=== PATIENT | male | born 1970 | race Asian ===

== ENCOUNTER 2017-07-18 10:38 | Inpatient (IN) | payer OTHER ==
--- NOTE | 2017-07-18 10:48 | CPEKG ---
Heart Rate: 153 RR Interval: 392 P-R Interval: 64 QRSD Interval: 68 QT Interval: 280 QTC Interval: 447 P Wilcox: 0 QRS Wilcox: 91 T Wave Wilcox: 35 EKG Severity - OTHERWISE NORMAL ECG - EKG Impression: SINUS TACHYCARDIA EKG Impression: BORDERLINE RIGHT AXIS DEVIATION Electronically Signed By: Eugenio Butler 18-Jul-2017 15:56:32
--- NOTE | 2017-07-18 10:56 | EDPHY ---
H & P Time Seen by Provider: 07/18/17 10:39 HPI/ROS: Chief complaint. Rapid heart rate HPI. 47-year-old male in a poly speaking only presents by EMS with rapid heart rate. It began about 2 hr ago. He was just finishing exercise and is heart rate seem to go fast. He had some shortness of breath and chest tightness. He was seen at [facility] and EMS was called and patient transported here emergently. Apparently has had similar symptoms previously with the last episode occurring about 2 weeks ago. Otherwise not sick and no fever. Patient is an insulin-dependent diabetic and tells me it is time for his insulin shot. ROS Constitutional. no fever/chills, no weakness Eyes. no problems with vision ENT. no sore throat, no nasal drainage Cardiovascular. Chest tightness and rapid heart rate Respiratory. Shortness of breath Abdominal. no abdominal pain, no nausea/vomiting, no diarrhea . no problems urinating MS. no calf pain/swelling, no neck/back pain, no joint pain Skin. no rash Lymph. no swollen glands Neuro. no headache, no dizziness, no difficulty walking or with speech Past Medical/Surgical History: Insulin-dependent diabetes, dyslipidemia Social History: Single, nonsmoker, no alcohol Physical Exam: General Appearance: Alert well-developed male moderate distress. Vital signs show heart rate about 154 and blood pressure approximately 90/60 Eyes: Pupils equal and round no pallor or injection. ENT, Mouth: Mucous membranes are moist. Respiratory: There are no retractions, lungs are clear to auscultation. Cardiovascular: Regular rate and rhythm with tachycardia Gastrointestinal: Abdomen is soft and nontender, no masses, bowel sounds normal. Neurological: Awake and alert, sensory and motor exams grossly normal. Skin: Warm and dry, no rashes. Musculoskeletal: Neck is supple nontender. Extremities symmetrical, full range of motion. Psychiatric: Patient is oriented X 3, there is no agitation. Constitutional: Initial Vital Signs Temperature (C) 36.8 C 07/18/17 10:52 Heart Rate 154 H 07/18/17 10:52 Respiratory Rate 18 07/18/17 10:52 Blood Pressure 116/70 07/18/17 10:52 O2 Sat (%) 99 07/18/17 10:52 O2 Delivery Mode Room Air Allergies/Adverse Reactions: No Known Allergies Allergy (Unverified 07/18/17 11:10) Home Medications: Medication Instructions Recorded Insulin 70/30 Human 07/18/17 Medical Decision Making - Diagnostics EKG Interpretation: EKG shows what appears to be supraventricular tachycardia. Normal interval and axis. No obvious ST elevation or depression. The rate is 153 Repeat EKG interpreted by me shows normal sinus rhythm normal interval and axis. QRS is normal though there is peaked T-waves. No arrhythmia. The rate is 90 Imaging Results: Imaging Impressions Chest X-Ray 07/18/17 10:53 Impression: Negative portable chest. Procedures: IV normal saline monitor Adenosine IV bolus. Heart rate comes down to about 90. Blood pressure now 116/70 ED Course/Re-evaluation: Patient is found to have potassium of 6.7. I repeated at 6.4. Patient is given calcium, insulin/D50, sodium bicarbonate intravenously. Kayexalate orally. I consulted and discussed the case with Dr. Roland, hospitalist, who agrees to the admission The family and I discussed findings, treatment plan including importance of admission and further evaluation. 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 Hyperkalemia with renal insufficiency treated with medication. No evidence for acute coronary syndrome Critical Care Time: Critical care time exclusive procedures 45 min - Data Points Laboratory Results: Laboratory Results 07/18/17 10:30 07/18/17 10:30 07/18/17 07/18/17 07/18/17 11:24 10:30 10:30 WBC 8.07 10^3/uL 10^3/uL (3.80-9.50) RBC 4.43 10^6/uL 10^6/uL (4.40-6.38) Hgb 14.1 g/dL g/dL (13.7-17.5) POC Hgb 14.3 gm/dL gm/dL (13.7-17.5) Hct 40.6 % % (40.0-51.0) POC Hct 42 % % (40-51) MCV 91.6 fL fL (81.5-99.8) MCH 31.8 pg pg (27.9-34.1) MCHC 34.7 g/dL g/dL (32.4-36.7) RDW 12.5 % % (11.5-15.2) Plt Count 220 10^3/uL 10^3/uL (150-400) MPV 10.3 fL fL (8.7-11.7) Neut % (Auto) 69.9 % % (39.3-74.2) Lymph % (Auto) 19.1 % % (15.0-45.0) Cook % (Auto) 5.7 % % (4.5-13.0) Eos % (Auto) 4.0 % % (0.6-7.6) Baso % (Auto) 1.1 % % (0.3-1.7) Nucleat RBC Rel Count 0.0 % % (0.0-0.2) Absolute Neuts (auto) 5.64 10^3/uL 10^3/uL (1.70-6.50) Absolute Lymphs (auto) 1.54 10^3/uL 10^3/uL (1.00-3.00) Absolute Monos (auto) 0.46 10^3/uL 10^3/uL (0.30-0.80) Absolute Eos (auto) 0.32 10^3/uL 10^3/uL (0.03-0.40) Absolute Basos (auto) 0.09 10^3/uL 10^3/uL (0.02-0.10) Absolute Nucleated RBC 0.00 10^3/uL 10^3/uL (0-0.01) Immature Gran % 0.2 % % (0.0-1.1) Immature Gran # 0.02 10^3/uL 10^3/uL (0.00-0.10) POC Sodium 136 mEq/L mEq/L (135-145) Sodium 136 mEq/L mEq/L (135-145) POC Potassium 6.4 mEq/L H* mEq/L (3.3-5.0) Potassium 6.7 mEq/L H* mEq/L (3.3-5.0) POC Chloride 102 mEq/L mEq/L (97-110) Chloride 102 mEq/L mEq/L (97-110) Carbon Dioxide 22 mEq/l mEq/l (22-31) Anion Gap 12 mEq/L mEq/L (8-16) POC BUN 31 mg/dL H mg/dL (7-23) BUN 30 mg/dL H mg/dL (7-23) Creatinine 1.5 mg/dL H mg/dL (0.7-1.3) POC Creatinine 1.6 mg/dL H mg/dL (0.7-1.3) Estimated GFR 50 Glucose 340 mg/dL H mg/dL (70-100) POC Glucose 353 mg/dL H mg/dL (70-100) Calcium 8.8 mg/dL mg/dL (8.5-10.4) Troponin I < 0.012 ng/mL ng/mL (0.000-0.034) Medications Given: Discontinued Medications Adenosine (Adenosine) 6 mg IVP EDNOW ONE Stop: 07/18/17 11:11 Last Admin: 07/18/17 11:11 Dose: 6 mg Point of Care Test Results: 07/18/17 11:24 POC Sodium 136 POC Potassium 6.4 H* POC Chloride 102 POC BUN 31 H POC Creatinine 1.6 H POC Glucose 353 H Departure - Departure Disposition: [facility] Inpatient Acute Clinical Impression: Supraventricular tachycardia, Hyperkalemia Condition: Fair Referrals: Patient,NotPresent [Unknown] - As per Instructions
[2017-07-18 10:58] LABS: PLATELET COUNT 220 10^3/uL (150-400)
[2017-07-18] MEDS ORDERED: ADENOSINE 6 MG/2 ML VIAL IVP ONE (11:10)
[2017-07-18] MEDS ORDERED: SODIUM POLY SULF 15 GM/60 ML BOTTLE PO ONE (11:46)
[2017-07-18] MEDS ORDERED: CALCIUM GLUC 10% 1 GM/10 ML VIAL IVP ONE (11:46)
[2017-07-18] MEDS ORDERED: D50W 25 GM/50 ML SYR IVP ONE (11:46)
[2017-07-18] MEDS ORDERED: INSULIN REGULAR HUMAN 100 UNIT/ML UNIT IVP ONE (11:46)
[2017-07-18] MEDS ORDERED: SODIUM BICARBONATE 150 MEQ in D5W 1,000 ML IV ONE (11:46)
[2017-07-18] MEDS ORDERED: ACETAMINOPHEN 325 MG TAB PO PRN (12:00)
[2017-07-18] MEDS ORDERED: SODIUM POLY SULF 15 GM/60 ML BOTTLE ONE (12:10)
[2017-07-18] MEDS ORDERED: D50W 25 GM/50 ML SYR IVP PRN (13:11)
--- NOTE | 2017-07-18 13:43 | PDGENHP ---
History and Physical - Chief Complaint Acute shortness of breath - History of Present Illness Primary care provider: [facility] HPI: 47-year-old male presenting with acute shortness of breath characterized as chest heaviness with associated sensation of rapid heart rate, blurred vision , chest pain with onset of symptoms on the day of presentation following light exercise and shower. Duration of symptoms was approximately 2 hr and they were alleviated by adenosine received in the emergency department. They are very similar in character to a constellation of symptoms occurring 5 months ago which were only of 15 min duration and were alleviated with juice. The patient reports that he has otherwise been feeling well, but has notably had low oral intake of liquids on the day of presentation and on the day prior. He does not report feeling overtly ill, and denies any fevers chills cough diarrhea nausea or vomiting. He reports that on the morning of presentation he did take his home medications prior to engaging in a brisk walk. He otherwise denies any polyuria, oliguria or flank pain. History Information - Allergies/Home Medication List Allergies/Adverse Reactions: No Known Allergies Allergy (Unverified 07/18/17 11:10) Home Medications: Aspirin EC [Aspirin EC 81 mg (*)] 81 mg PO DAILY 07/18/17 [Last Taken 07/17/17] Atorvastatin Calcium [Lipitor 20 mg (*)] 20 mg PO DAILY 07/18/17 [Last Taken ] Insulin Detemir [Levemir Flextouch] 8 unit SQ DAILY 07/18/17 [Last Taken ] Insulin Detemir [Levemir Flextouch] 10 unit SQ HS 07/18/17 [Last Taken 07/17/17] Linagliptin [Tradjenta] 5 mg PO DAILY 07/18/17 [Last Taken 07/18/17] Lisinopril [Zestril 5 mg (*)] 5 mg PO DAILY 07/18/17 [Last Taken 07/17/17] Pioglitazone HCl [Actos 15mg (*)] 15 mg PO DAILY 07/18/17 [Last Taken 07/17/17] diphenhydrAMINE [Benadryl 25 MG (*)] 50 mg PO Q4-6PRN PRN 07/18/17 [Last Taken Unknown] metFORMIN HCL [Glucophage 1000 mg] 1,000 mg PO BIDMEAL 07/18/17 [Last Taken 18:00] I have personally reviewed and updated: family history, medical history, social history, surgical history - Past Medical History diabetes type 1 (Diagnosis 14-15 years ago, no hospitalizations, resultant retinopathy), hypertension, hyperlipidemia Additional medical history: Nephrolithiasis - Surgical History Additional surgical history: Left-sided ureteral surgery for obstructive kidney stone - Family History Additional family history: No family history of sudden cardiac or premature coronary artery disease - Social History Smoking Status: Never smoked Alcohol Use: None Drug Use: None Additional social history: Reports that he exercises 4-5 times weekly, he is originally from [facility] where his and children live, 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 Review of Systems Review of Systems: ROS: 10pt was reviewed & negative except for what was stated in HPI & below EENMT: Reports: blurred vision Cardiac: Reports: chest pain, palpitations Respiratory: Reports: shortness of breath Physical Exam Physical Exam: Temp Pulse Resp BP Pulse Ox 36.8 C 80 12 116/70 99 07/18/17 10:52 07/18/17 13:13 07/18/17 13:13 07/18/17 13:13 07/18/17 13:13 Constitutional: no apparent distress, appears nourished, not in pain Eyes: PERRL, EOMI, scleral injection Ears, Nose, Mouth, Throat: moist mucous membranes, hearing normal, ears appear normal, no oral mucosal ulcers Cardiovascular: regular rate and rhythym, no murmur, rub, or gallop, No edema Respiratory: no respiratory distress, no rales or rhonchi, clear to auscultation Gastrointestinal: normoactive bowel sounds, soft, non-tender abdomen, no palpable masses, No distension Genitourinary: other (Bladder fullness, no CVA tenderness) Skin: warm, No abrasion, No erythema, No rash Neurologic: AAOx3, sensation intact bilaterally, No weakness Psychiatric: interacting appropriately, not anxious, not encephalopathic, thought process linear Lab Data & Imaging Review 07/18/17 10:30 07/18/17 10:30 WBC 8.07 10^3/uL (3.80-9.50) 07/18/17 10:30 RBC 4.43 10^6/uL (4.40-6.38) 07/18/17 10:30 Hgb 14.1 g/dL (13.7-17.5) 07/18/17 10:30 POC Hgb 14.3 gm/dL (13.7-17.5) 07/18/17 11:24 Hct 40.6 % (40.0-51.0) 07/18/17 10:30 POC Hct 42 % (40-51) 07/18/17 11:24 MCV 91.6 fL (81.5-99.8) 07/18/17 10:30 MCH 31.8 pg (27.9-34.1) 07/18/17 10:30 MCHC 34.7 g/dL (32.4-36.7) 07/18/17 10:30 RDW 12.5 % (11.5-15.2) 07/18/17 10:30 Plt Count 220 10^3/uL (150-400) 07/18/17 10:30 MPV 10.3 fL (8.7-11.7) 07/18/17 10:30 Neut % (Auto) 69.9 % (39.3-74.2) 07/18/17 10:30 Lymph % (Auto) 19.1 % (15.0-45.0) 07/18/17 10:30 [place] % (Auto) 5.7 % (4.5-13.0) 07/18/17 10:30 Eos % (Auto) 4.0 % (0.6-7.6) 07/18/17 10:30 Baso % (Auto) 1.1 % (0.3-1.7) 07/18/17 10:30 Nucleat RBC Rel Count 0.0 % (0.0-0.2) 07/18/17 10:30 Absolute Neuts (auto) 5.64 10^3/uL (1.70-6.50) 07/18/17 10:30 Absolute Lymphs (auto) 1.54 10^3/uL (1.00-3.00) 07/18/17 10:30 Absolute Monos (auto) 0.46 10^3/uL (0.30-0.80) 07/18/17 10:30 Absolute Eos (auto) 0.32 10^3/uL (0.03-0.40) 07/18/17 10:30 Absolute Basos (auto) 0.09 10^3/uL (0.02-0.10) 07/18/17 10:30 Absolute Nucleated RBC 0.00 10^3/uL (0-0.01) 07/18/17 10:30 Immature Gran % 0.2 % (0.0-1.1) 07/18/17 10:30 Immature Gran # 0.02 10^3/uL (0.00-0.10) 07/18/17 10:30 POC Sodium 136 mEq/L (135-145) 07/18/17 11:24 Sodium 136 mEq/L (135-145) 07/18/17 10:30 POC Potassium 6.4 mEq/L (3.3-5.0) H* 07/18/17 11:24 Potassium 6.7 mEq/L (3.3-5.0) H* 07/18/17 10:30 POC Chloride 102 mEq/L (97-110) 07/18/17 11:24 Chloride 102 mEq/L (97-110) 07/18/17 10:30 Carbon Dioxide 22 mEq/l (22-31) 07/18/17 10:30 Anion Gap 12 mEq/L (8-16) 07/18/17 10:30 POC BUN 31 mg/dL (7-23) H 07/18/17 11:24 BUN 30 mg/dL (7-23) H 07/18/17 10:30 Creatinine 1.5 mg/dL (0.7-1.3) H 07/18/17 10:30 POC Creatinine 1.6 mg/dL (0.7-1.3) H 07/18/17 11:24 Estimated GFR 50 07/18/17 10:30 Glucose 340 mg/dL (70-100) H 07/18/17 10:30 POC Glucose 353 mg/dL (70-100) H 07/18/17 11:24 Calcium 8.8 mg/dL (8.5-10.4) 07/18/17 10:30 Troponin I < 0.012 ng/mL (0.000-0.034) 07/18/17 10:30 Visualized and Interpreted Chest x-ray results: Yes Chest X-Ray results: no infiltrate Visualized and Interpreted EKG results: Yes EKG Interpretation: Positive for: other (Presenting EKG with supraventricular tachycardia) Assessment & Plan Assessment: 47-year-old male presenting with acute supraventricular tachycardia most likely secondary to acute hyperkalemia secondary to acute kidney injury Plan: 1. Supraventricular tachycardia. Acute, new problem this provider, further workup indicated. I suspect this is the etiology of the patient's chest symptoms, most likely provoked by severe hyperkalemia as well as recent exercise -get echocardiogram -check TSH -check D-dimer -cycle troponin level -monitor on telemetry -patient broke into a normal sinus mechanism with adenosine, he is currently in normal sinus rhythm on telemetry, personally interpreted 2. Hyperkalemia. Acute, severe, most likely secondary to acute kidney injury, likely provoking factor patient's arrhythmia -patient has received calcium gluconate, D50, insulin, bicarbonate, Kayexalate in the emergency department -repeat serum potassium level and monitor q.4 hours -if serum potassium remains greater than 6 on repeat lab draw, will repeat Kayexalate dosing as well as another amp of bicarbonate -monitor closely on telemetry -if potassium level is worsening, will consult with Renal for possible renal replacement therapy 3. Acute kidney injury. New problem this provider, further workup indicated. Unclear whether this is purely hypovolemic in the setting of approximately 48 hr of low oral intake of liquids as well as recent exercise and concomitant use of NED-inhibitor, he is at risk for chronic kidney disease with a history of obstructive nephrolithiasis as well as insulin-dependent diabetes and retinopathy -check renal ultrasound -get urinalysis, fraction excretion of sodium, microalbumin to creatinine ratio -monitor strict I&Os, continue with normal saline 150 an hour and repeat serum creatinine level in a.m. 4. Diabetes mellitus. Hyperglycemia on presentation, most likely secondary to above, no evidence of DKA with normal anion gap -will check hemoglobin A1c -order outside records from [facility] to determine level of screening and maintenance to date -continue home medication of long-acting insulin, utilize short-acting insulin sliding scale -hold metformin, hold actos, hold Tradjenta given kidney injury 5. Hypertension. Chronic, hold NED-inhibitor, monitor blood pressure Diet. Renal Prophylaxis. High risk patient, heparin subcu Code. Full, sister Ashley Fitzpatrick is his MD POA Disposition. Anticipated discharge is 07/19, pending resolution of conditions outlined above. I have discussed patient's presentation with Sola Gonzalez, hospitalist provider , she has signed out the patient to me for evaluation.
[2017-07-18] MEDS ORDERED: diphenhydrAMINE 25 MG CAP PO PRN (13:51)
--- NOTE | 2017-07-18 14:55 | ASMTCASEMG ---
Living Arrangements What is your living Answers: With Spouse arrangement? Who do you live with? Type Of Residence What kind of residence do Answers: House you live in? Discharge Plan Comments Coordination Status Comments Notes: Pt is a 47 y/o man admitted for shortness of breath. Pt will most likely d/c independent when medically stable. No therapies ordered at this time. CM available for changes. Plan: Independent Date Signed: 07/18/2017 02:54 PM Electronically Signed By:SISSY Pierre
--- NOTE | 2017-07-18 15:29 | ECHO ---
[email or web address] [address] Main: [phone] Fax: [email or web address] Echocardiogram Name: ARNOLD ALICEA MR#: [id number] Study Date: 07/18/2017 Study Time: 02:35 PM Date of : 1970 Age: 47 year(s) Height: 165.1 cm (65 in.) Weight: ( ) BSA: Gender: Male Examination: Echo Indication: Supraventricular Tachycardia Image Quality: Contrast: Requested by: Josh Perea BP: 132 mmHg/78 mmHg Heart Rate: Rhythm: Indication: Supraventricular Tachycardia Procedure Staff Sales And Marketing Specialist: Bhargavi Cox SARA Reading Physician: Requesting Provider: Measurements: Chambers Valvular Assessment AV/MV Valvular Assessment TV/PV Normal Normal Normal Name Value Range Name Value Range Name Value Range Ao Maricel (MM): 3.7 cm (2.2 cm-3.7 AV meanP mmHg ( - ) TR Vmax: 2.00 mm/s ( - ) cm) MV E Vmax: 0.44 m/s ( - ) TR PGmax: 16 mmHg ( - ) IVSd (2D): 1.2 cm (0.6 cm-1.1 MV A Vmax: 0.65 m/s ( - ) syst. PAP: 21 mmHg ( - ) cm) MV E/A: 0.68 ( - ) LVDd (2D): 4.4 cm (4.2 cm-5.9 cm) LVDs (2D): 3.2 cm (2.1 cm-4 cm) LVPWd (2D): 0.9 cm (0.6 cm-1 cm) LVEF (MOD4): 73 % (>=55 %) EF Range: 65-70 % Continued Measurements: Chambers Valvular Assessment AV/MV Valvular Assessment TV/PV Name Value Name Value Name Value LADs: 3.6 cm MV E' Septal: 0.05 m/s CVP (est.): 5 mmHg LADs Lon.5 cm MV E/E' Septal: 9.40 LA Area: 21.8 cm2 MV E/E' Lateral: 7.50 Additional Vessels Name Value Ao Ascendin.8 cm Patient: ARNOLD ALICEA Study Date: 07/18/2017 Page 1 of 2 02:35 PM Findings: Left Ventricle: Normal size left ventricle. Mild concentric LV hypertrophy. Normal global systolic LV function. The ejection fraction is estimated to be 65-70 %. No regional wall motion abnormality. Right Ventricle: Normal size right ventricle. Left Atrium: The left atrium is moderately dilated. Atrial septal bowing from left to right. Right Atrium: The right atrium is normal in size. Mitral Valve: The mitral valve is normal in appearance and function. Trivial to mild mitral regurgitation. Aortic Valve: The aortic valve is tri-leaflet. Minimal aortic cusp calcification is noted. Tricuspid Valve: The tricuspid valve is normal in appearance and function. Mild tricuspid regurgitation is present. Pulmonic Valve: The pulmonic valve is normal in appearance and function. Trivial pulmonic valve regurgitation. Aorta: The aorta is normal. Pericardium: No pericardial effusion. (No Signature Object) Patient: ARNOLD ALICEA Study Date: 07/18/2017 Page 2 of 2 02:35 PM [id number]
[2017-07-18] MEDS: NS 1,000 ML IV SCH ×2 (16:07→22:18)
--- NOTE | 2017-07-18 16:09 | CPEKG ---
Heart Rate: 79 RR Interval: 759 P-R Interval: 164 QRSD Interval: 70 QT Interval: 372 QTC Interval: 427 P Aspers: 56 QRS Aspers: 49 T Wave Aspers: 27 EKG Severity - NORMAL ECG - EKG Impression: SINUS RHYTHM Electronically Signed By: Robert Zapata 19-Jul-2017 09:28:18
[2017-07-18] MEDS: INSULIN REGULAR HUMAN 100 UNIT/ML UNIT SC SCH ×2 (18:34→21:57)
[2017-07-18] MEDS: HEPARIN 5,000 UNIT/0.5 ML INJ SC SCH (22:04)
[2017-07-19] MEDS: HEPARIN 5,000 UNIT/0.5 ML INJ SC SCH ×4 (06:25→21:52)
[2017-07-19] MEDS ORDERED: ATORVASTATIN CALCIUM 20 MG TAB PO SCH (09:00)
[2017-07-19] MEDS ORDERED: ENOXAPARIN 40 MG/0.4 ML SYR SC SCH (09:00)
[2017-07-19] MEDS ORDERED: ASPIRIN 81 MG PO SCH (09:00)
[2017-07-19] MEDS ORDERED: ATORVASTATIN CALCIUM 10 MG TAB PO SCH (09:00)
--- NOTE | 2017-07-19 11:17 | CPR ---
[f rep st] NONINVASIVE CARDIAC PROCEDURE REPORT DATE OF PROCEDURE: 07/19/2017 PROCEDURE: Exercise treadmill test. INDICATION: The patient is a 47-year-old male with a history of hypertension, diabetes, and possible hyperlipidemia who presented to the hospital with chest discomfort. He was found to be in SVT which terminated with adenosine. His troponin was minimally elevated. PROCEDURE IN DETAIL: Consent was obtained and the patient was placed on continuous telemetry. He is [place] speaking only and therefore a phone interpreter and translator was used during the procedure. His resting EKG revealed normal sinus rhythm with a heart rate of [address]-T wave changes. The jun horne exercised for 13 minutes without any associated symptoms. At peak exertion, he developed 1.5 m m of upsloping ST depression in inferior and lateral leads. The ST changes resolved quickly in the r ecovery phase. His blood pressure at rest was 146/82 and increased peaking at 200/60 with peak exert ion. His blood pressure returned to baseline 5 minutes into recovery. PLAN: Positive exercise treadmill test. I did recommend the patient proceed with a nuclear stress t est which has been scheduled for later this afternoon. /[id number]/MODL
[2017-07-19] MEDS: INSULIN REGULAR HUMAN 100 UNIT/ML UNIT SC SCH ×4 (11:50→21:48)
[2017-07-19] MEDS: ATORVASTATIN CALCIUM 10 MG TAB PO SCH (12:10)
[2017-07-19] MEDS: ASPIRIN EC 81 MG TAB PO SCH (12:10)
[2017-07-19] MEDS ORDERED: REGADENOSON 0.4 MG/5 ML SYR IVP ONE (13:02)
--- NOTE | 2017-07-19 15:19 | HOSPPROG ---
Hospitalist Progress Note Assessment/Plan: # Acute Chest pain - pt remained symptom free overnight - troponins and EKG's negative patient taken to treadmill this am an had ST segment depression will exerting with some right sided chest pressure during recovery EKG (personally reviewed and interpreted) remains in sinus - Lexiscan ordered - added troponin to am labs - cont telemetry - if larisa positive will need to stay for cards consult and Cath # Supraventricular tachycardia- Acute- patient broke into sinus rhythm after admission Echocardiogram (reviewed) EF 65% without segmental wall motion abnormalities TSH 6.25 - continue telemetry # Hyperkalemia-Acute, severe, most likely secondary to acute kidney injury, likely provoking factor patient's arrhythmia patient received calcium gluconate, D50, insulin, bicarbonate, Kayexalate in the emergency department -recheck serum potassium in am # Acute kidney injury- secondary to hypovolemia creatinine 1.5 -> 1.0 overnight with IVF - recheck creatinine in am # Diabetes mellitus- Hyperglycemia on presentation-no evidence of DKA with normal anion gap hemoglobin A1c 8.6 -continue home medication of long-acting insulin and SSI -hold metformin -hold actos -hold Tradjenta given kidney injury # Hypertension. Chronic, hold NED-inhibitor, monitor blood pressure Diet. Renal Prophylaxis. High risk patient, heparin subcu Code. Full, sister Ashley Fitzpatrick is his MD POA Disposition. Anticipated discharge is 07/19, pending resolution of conditions outlined above. I have discussed the case with Cardiology - will order Lexiscan as pt with changes on tread and significant risk factors for CAD Subjective: did have pain after stress Objective: Vital Signs Temp Pulse Resp BP Pulse Ox 36.4 C 76 15 135/82 H 96 07/19/17 04:32 07/19/17 11:48 07/19/17 11:48 07/19/17 11:48 07/19/17 11:48 Laboratory Results 07/19/17 04:01 07/18/17 07/19/17 07/20/17 05:59 05:59 05:59 Intake Total 3044 Output Total 700 Balance 2344 - Physical Exam Constitutional: appears nourished Eyes: anicteric sclera Ears, Nose, Mouth, Throat: moist mucous membranes Cardiovascular: regular rate and rhythym Respiratory: no respiratory distress Gastrointestinal: normoactive bowel sounds Genitourinary: no bladder fullness Skin: warm Musculoskeletal: No asymmetric calves Neurologic: AAOx3 Psychiatric: interacting appropriately Lymph, Heme, Immunologic: no cervical LAD ICD10 Worksheet Patient Problems: Problems Problem Status Onset Hyperkalemia Acute Supraventricular tachycardia Acute
--- NOTE | 2017-07-19 20:39 | CPR ---
[f rep st] NONINVASIVE CARDIAC PROCEDURE REPORT DATE OF PROCEDURE: 07/18/2017 PROCEDURE PERFORMED: Exercise nuclear stress test. INDICATION FOR PROCEDURE: Chest pain, with evidence of ECG changes on exercise treadmill stress test performed earlier today. PROCEDURE: After informed consents were obtained for exercise treadmill stress test and nuclear imag ing, the patient was started on the standard Garrett protocol. He was able to exercise for a total of 13 minutes and 1 second on the standard Garrett protocol. He had no symptoms. He did have ECG changes , including [address]-segment depression in leads V4 through V6 that resolved within 45 seco nds to 1 minute into the recovery phase. He had no symptoms. There were no arrhythmias detected. P eak blood pressure was 202/80. Pre-exercise blood pressure was 138/70. CONCLUSIONS: 1. Positive exercise treadmill stress test, with [address]-segment depressions in V4 throug h V6. 2. Rapid resolution of ECG changes, suggestive of false positive. 3. No symptoms with 13 minutes of exercise, Doty treadmill score of 3, moderate risk. PLAN: Nuclear images are pending. Further decisions regarding the patient's care will be based off of nuclear imaging results. The patient is stable at the time of discharge and returning to room on -[place] telemetry. /[id number]/MODL
[2017-07-19] MEDS: INSULIN DETEMIR 5 UNIT SQ SCH (21:49)
[2017-07-20] MEDS: NS 1,000 ML IV SCH (00:13)
[2017-07-20] MEDS: HEPARIN 5,000 UNIT/0.5 ML INJ SC SCH (05:56)
[2017-07-20] MEDS: INSULIN REGULAR HUMAN 100 UNIT/ML UNIT SC SCH ×5 (09:29→22:16)
[2017-07-20] MEDS: ATORVASTATIN CALCIUM 10 MG TAB PO SCH (09:30)
[2017-07-20] MEDS: ASPIRIN EC 81 MG TAB PO SCH (09:30)
--- NOTE | 2017-07-20 12:39 | HOSPPROG ---
Hospitalist Progress Note Assessment/Plan: # Acute Chest pain - pt with CP during recovery of treadmill yesterday - troponins peaked post tachycardia at 0.36 patient taken to treadmill this am an had ST segment depression- TELE ( personally reviewed and interpreted) remains in sinus Lexiscan show areas of infarct and periinfarct ischemia oxygen saturations 93% on RA - NPO for cath - cont telemetry # Supraventricular tachycardia- Acute- patient broke into sinus rhythm after admission Echocardiogram (reviewed) EF 65% without segmental wall motion abnormalities - Lexiscan EF 57% TSH 6.25 - continue telemetry # Hyperkalemia-Acute, severe, most likely secondary to acute kidney injury- now resolved patient received calcium gluconate, D50, insulin, bicarbonate, Kayexalate in the emergency department -recheck serum potassium in am # Acute kidney injury- secondary to hypovolemia creatinine 1.5 -> 0.9 with IVF - recheck creatinine in am # Diabetes mellitus- Hyperglycemia on presentation-no evidence of DKA with normal anion gap hemoglobin A1c 8.6 -continue home medication of long-acting HS insulin at 1/2 dose while NPO - cont SSI -hold metformin -hold actos -hold Tradjenta given kidney injury # Hypertension. Chronic, hold NED-inhibitor, monitor blood pressure Diet. Renal Prophylaxis. High risk patient, heparin subcu Code. Full, sister Ashley Fitzpatrick is his MD POA Disposition. > 2MN as requires cardiac cath I have discussed the case with Dr. Brown - for suspected cath this afternoon Subjective: denies pain this am Objective: Vital Signs Temp Pulse Resp BP Pulse Ox 37.0 C 60 16 148/83 H 93 07/20/17 11:36 07/20/17 11:36 07/20/17 11:36 07/20/17 11:36 07/20/17 11:36 Laboratory Results 07/20/17 03:47 07/19/17 07/20/17 07/21/17 05:59 05:59 05:59 Intake Total 3044 200 300 Output Total 700 Balance 2344 200 300 - Physical Exam Constitutional: no apparent distress Eyes: anicteric sclera Ears, Nose, Mouth, Throat: moist mucous membranes Cardiovascular: regular rate and rhythym Respiratory: no respiratory distress, No inspiratory crackles Gastrointestinal: normoactive bowel sounds Genitourinary: no bladder fullness Skin: warm Musculoskeletal: No asymmetric calves Neurologic: AAOx3 Psychiatric: interacting appropriately Lymph, Heme, Immunologic: no cervical LAD ICD10 Worksheet Patient Problems: Problems Problem Status Onset Hyperkalemia Acute Supraventricular tachycardia Acute
--- NOTE | 2017-07-20 13:24 | PDMN ---
Medical Necessity Medical necessity: C/M review: Patient meets INPT criteria under MCG M-89 Chest pain, M-210 Supraventricular arrhythmias: Acute chest pain upon admission and during recovery of stress treadmill 07/19/2017 - patient had ST segment depression during stress treadmill 07/19/2017, troponins 0.012, 0.199, 0.367, 0.304, 07/19/2017 Lexiscan myocardial perfusion showed small infarct in the anterior septal wall toward the apex, moderate infarct in the inferolateral wall with periinfarct ischemia, LVEF 57%, Acute severe supraventricular tachycardia heart rate 154 07/18/2017, patient went into sinus rhythm after admission, TSH 6.26, acute hyperkalemia most likely to acute kidney injury - K 6.7 treated with calcium gluconate, D50, insulin, bicarbonate, kayexalate in the ED, subsequent K levels - 5.0, 3.7, 4.9. 4.6 (now resolved), acute kidney injury secondary to hypovolemia, Cr 1.5, 1.1, 1.0, 1.0, 0.9, requiring Cardiology consult, 07/19/2017 stress treadmill (positive0 and myocardial perfusion scan, possible 07/20/2017 cardiac catheterization, ongoing IV NS 50 ml/ hr. infusion, cardiac monitoring, pulse oximetry, comorbid diabetes. MD anticipates > 2 MN LOS for ongoing med nec for eval and TX of above.
--- NOTE | 2017-07-20 14:43 | ASMTCMCOM ---
CM Note CM Note Notes: Chart reviewed. Questioning infarted area on his stress test. Plan for cath this pm with Dr. Brown. Needs to be determined. CM to follow. Plan: likely home Independently with family. Date Signed: 07/20/2017 02:42 PM Electronically Signed By:Cecilia Bauer RN
--- NOTE | 2017-07-20 21:15 | GCON ---
[f rep st] CONSULTATION FORMAL CARDIOLOGY CONSULTATION. DATE OF CONSULTATION: 07/20/2017 HISTORY OF PRESENT ILLNESS: The patient is a 47-year-old, [place] National, presenting to the [facility] with acute shortness of breath associated with chest heaviness and pressure, as well as sensation of rapid heartbeat, blurred vision, and dizziness. The patient was exercising earlier today and the n took a shower and experience sudden onset of relatively rapid heartbeat. He went to the pharmacy t o rock picker some medications and continued to have clinical symptoms and ultimately presented to the em ergency department for further evaluation at the recommendation of the pharmacist. He has had simila r symptoms in the past, approximately 5 months ago, that lasted approximately 15 minutes and were all eviated with resting while he was working and drinking some juice. The patient has otherwise been fe eling well and has not noted chest pressure, tightness, or other clinical symptoms of concern while w alking briskly or exercising by jogging. He has not traveled recently. Does not have a sensation of feeling overtly ill. Denies fevers, chills, cough, diarrhea, nausea, or vomiting. He has no known allergies. CURRENT MEDICATIONS: Include aspirin 81 mg daily, atorvastatin 20 daily, insulin in adjust the dose, Tradjenta 5 mg p.o. daily, lisinopril 5 mg daily, pioglitazone Actos 15 mg p.o. daily, diphenhydrami ne 25 mg as needed for allergic reactions, metformin 1000 mg p.o. twice daily. PAST MEDICAL HISTORY: Significant for diabetes diagnosed 14 to 15 years ago with associated resultan t diabetic retinopathy. He has a history of hypertension and dyslipidemia. He also has a history of kidney stones. PAST SURGICAL HISTORY: Significant for left-sided ureteral surgery for obstructive kidney stone. FAMILY HISTORY: Is negative for a history of sudden cardiac or premature coronary artery disea se. SOCIAL HISTORY: Pertinent for the fact that he has never smoked. He does not use alcohol or illicit drugs. He exercises 4 to 5 times a week and is originally from [facility]. 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 A 10-point review of systems was reviewed with the patient, is negative except for as stated in the H PI. HOSPITAL COURSE: The patient presented to the hospital in SVT that was adenosine responsive and term inated. The patient underwent subsequent evaluation with an overnight admission for a stress test following day. His portable chest x-ray was negative for acute pathology. His troponins were noted to be trending higher and were initially normal on admission. His D-dimer w as negative. His troponins trended in the 0.3 range on 3 serial measurements. A subsequent EKG stress test was positive for ischemia with a [address]-segment depression on the tread mill with post treadmill chest discomfort, for this reason, it was followed up with a nuclear treadmi ll test which has subsequently returned with a resting study to indicate a small infarct in the anter oseptal region toward the apex with a moderate infarction in the inferior lateral wall with lencho-infa rct ischemia. The overall ejection fraction was preserved at 57%. Because of these findings on the nuclear stress test I was asked to see the patient in urgent consultation in the care of Dr. Monet ulrich. At the time of my evaluation, I was able to use the official medical records library professor via the device, yovany fina was brought into the room. I was able to converse with the patient using a [place] official medic al private secretary. The patient's family members who spoke better Maltese were in the room as well and l istened to my interaction with the patient. The patient does admit to tachycardia, chest pain and sh ortness of breath. I was able to communicate to the patient that he had an abnormal stress test. At the time of my evaluation, the patient's blood pressure is modestly elevated at 148/83, his pulse is 60 and regular, respirations 16 and unlabored, oxygen saturation is 93% on room air. He is afebrile at 37.0 Celsius. NECK: Reveals no JVD or carotid bruits. HEART: Reveals normal S1 and S2 without S3, S4. I do not appreciate a rub or gallop sound. The patient's echo on admission of 07/18 reveal ed normal left ventricular size with mild concentric LVH consistent with the patient's history of hyp ertension. There was moderately dilated left atrium with an interatrial septal aneurysm and septal b owing from the left to the right. There was no evidence of an obvious shunt. The valvular structure s were normal in appearance and function with only mild mitral and tricuspid regurgitation. The pulm onary pressure was not felt to be elevated. The aorta appeared to be normal in size. There is no ev idence of pericardial effusion. IMPRESSION AND PLAN: The patient has paroxysmal supraventricular tachycardia as evidenced by his pre senting 12-lead EKG. This was adenosine responsive and there does appear to be a RS pseudo R prime p attern in V1, most consistent with an AVN RT. During the tachycardia the patient had chest discomfor t, pressure and tightness with associated shortness of breath and has subsequently been found to have an abnormal stress test in regard to his EKG as well as the nuclear images, along with elevated trop onin levels. I have explained to the patient via the private secretary that if indeed the patient has obst ructive coronary disease and chest pain that is active related to this problem that there would be ap proximately 1 in 6 to 1 in 5 chance of going on to develop a full-blown heart attack within the next 30 days. I did explain that the usual next step in a patient with an elevated troponin, presenting i n an abnormal rhythm along with an abnormal EKG and nuclear stress test would be to consider proceedi ng with a cardiac catheterization to evaluate for obstructive coronary artery disease or an unstable coronary plaque. I did explain that it was an invasive procedure and did carry with it a low but ron surable risk of , stroke, that is permanent disabling as well as heart attack, and given these d isclosures, the patient stated that he did not want to proceed with an invasive procedure at the pres ent time. He does have a flight, which is scheduled to go to [place] tomorrow, which he has already paid for and he is interested in flying to [place] and trying to deal with these issues later on. I did explain that I thought it would be contraindicated from a medical standpoint for him to get on a long flight to the [facility] because of the difficulty in seeking immediate medical care should hi s condition take a turn for the worst. I did recommend that he consider my recommendations and to di scuss it with his family members and friends. I did recommend that we stop his n.p.o. status and all ow him to ambulate in the halls. I did recommend he stay in the hospital for telemetry observation t o see if he would have recurrence of heart rhythm disturbance or chest discomfort or other clinical s ymptoms of concern. It is my opinion that the patient will likely leave Against Medical Advice and g o on his trip in spite of the recommendations. I did explain that there is a possibility of this kimberly t being a false negative study, especially since the nuclear stress test identifies regions or zones of infarction that were not identified on the basis of the transthoracic echocardiogram. I also expl ained that the elevated troponin levels are sometimes seen in very young patients who are unlikely to have coronary obstruction when they are presented with a sustained SVT. The patient certainly does have risk factors for coronary disease including left ventricular hypertrophy on echocardiogram, diab etes mellitus that has been chronic for at least 14 to 16 years and is poorly controlled, as well as hypertension and dyslipidemia. I did explain to the patient on several different occasions with the use of the [place] surgical appliances salesperson that I felt it would be in his best interest to proceed with an invasi ve evaluation of his coronary circulation given his cardiac risk factors, clinical symptoms, troponin elevation and EKG changes and imaging abnormalities on nuclear stress test. The patient will think about these recommendations and will make a decision hopefully prior to discharge. I did also make i t clear that I thought it would be medically contraindicated for him to go on a flight or be away fro m access to an urgent or emergency medical care. /[id number]/MODL
[2017-07-20] MEDS: INSULIN DETEMIR 5 UNIT SQ SCH (21:49)
[2017-07-21] MEDS ORDERED: LISINOPRIL 5 MG TAB PO SCH (09:00)
[2017-07-21] MEDS ORDERED: ENOXAPARIN 40 MG/0.4 ML SYR SC SCH (09:00)
[2017-07-21] MEDS: ASPIRIN EC 81 MG TAB PO SCH (09:07)
[2017-07-21] MEDS: ATORVASTATIN CALCIUM 10 MG TAB PO SCH (09:07)
[2017-07-21] MEDS: INSULIN REGULAR HUMAN 100 UNIT/ML UNIT SC SCH ×3 (09:07→18:50)
--- NOTE | 2017-07-21 11:30 | SOAPPROG ---
ELENA Progress Note Assessment/Plan: Assessment: Problem list: 1. Chest pain associated with abnormal exercise tolerance test/MPI 2. SVT associated with chest pain and elevation in troponin 3. Risk factor diabetes. Impression: Stable hemodynamics overnight without further discomfort. Discussed risks and benefits of cardiac catheterization done from the wrist with the patient using a medical office technologist service. We will proceed today for diagnostic/therapeutic angiogram. Further management recommendations pending results of study. 07/21/17 11:27 07/21/17 11:32 Subjective: Feeling well. No chest pain overnight. Concerns about risk of stroke and procedure. Denies PND orthopnea. No syncope or near syncope. He is NPO Objective: Vital Signs Temp Pulse Resp BP Pulse Ox 36.6 C 64 12 153/92 H 98 07/21/17 07:08 07/21/17 07:08 07/21/17 07:08 07/21/17 07:08 07/21/17 07:08 Laboratory Results 07/20/17 03:47 07/20/17 07/21/17 07/22/17 05:59 05:59 05:59 Intake Total 200 1700 Balance 200 1700 Laboratory Tests 07/18/17 07/18/17 07/18/17 10:30 15:00 22:20 Troponin I < 0.012 0.199 H 0.367 H 07/19/17 04:01 Troponin I 0.304 H 13 min exercise time on a full Garrett protocol. [address] depression seen at peak exercise with rapid recovery. Nuclear imaging suggested an apical infarct with attenuation of the inferior wall. Preserved ejection fraction. Most recent EKG on the showed sinus rhythm without acute ST-T changes and is normal. Physical Exam - Physical Exam General Appearance: no apparent distress EENT: PERRL/EOMI Neck: non-tender, full range of motion, supple Respiratory: chest non-tender, lungs clear Cardiac/Chest: normal peripheral pulses, regular rate, rhythm, No edema, No gallop, No JVD Peripheral Pulses: 1+: carotid (R), carotid (L), femoral (R), femoral (L), dorsalis-pedis (R), dorsalis-pedis (L) Abdomen: normal bowel sounds, non-tender, soft Back: Normal inspection Skin: warm/dry Lymphatic: no adenopathy Extremities: No pedal edema, No calf tenderness Neuro/Psych: alert, No facial droop ICD10 Worksheet Patient Problems: Problems Problem Status Onset Supraventricular tachycardia Acute Hyperkalemia Acute Review of Systems - Review of Systems Constitutional: denies: chills, fever EENTM: no symptoms reported Respiratory: no symptoms reported Cardiac: no symptoms reported Gastrointestinal/Abdominal: no symptoms reported Genitourinary: no symptoms Musculoskelatal: no symptoms Skin: no symptoms Neurological: no symptoms Hematologic/Lymphatic: no symptoms reported Immunologic/allergic: no symptoms reported All Other Systems: Reviewed and Negative Past Medical History - Personal History Current Tetanus Diphtheria and Acellular Pertussis (TDAP): Unsure - Medical/Surgical History Hx Asthma: No Hx Chronic Respiratory Disease: No Hx Cardiac Disease: No Hx Diabetes: Yes Hx Renal Disease: No Hx Alcoholism: No Hx Cirrhosis: No Hx HIV/AIDS: No Hx Splenectomy or Spleen Trauma: No Other PMH: DM, KIDNEY STONES - Social History Smoking Status: Never smoked
[2017-07-21] MEDS ORDERED: FAMOTIDINE 20 MG TAB PO ONE (11:32)
[2017-07-21] MEDS ORDERED: NITROGLYCERIN 0.4 MG BTL SL PRN (11:32)
[2017-07-21] MEDS ORDERED: DIAZEPAM 5 MG TAB PO ONE (11:32)
[2017-07-21] MEDS ORDERED: TEMAZEPAM 15 MG CAP PO PRN (11:32)
--- NOTE | 2017-07-21 11:34 | PDPROPOC ---
Sedation Plan of Care Sedation Plan of Care: vital signs stable, mental status noted, patient educated of risks, benefits, alternatives, patient can tolerate sedation ASA Classification: ASA 2 Planned drugs: fentanyl, midazolam Mallampati Score: Class 1 Mallampati Reference Image: Patient passed 3-3-2 rule?: Yes
[2017-07-21] MEDS ORDERED: NS 1,000 ML IV SCH (11:45)
[2017-07-21 12:32] LABS: PLATELET COUNT 199 10^3/uL (150-400)
[2017-07-21 12:39] LABS: PROTIME(PATIENT) 13.4 SEC (12.0-15.0)
[2017-07-21] MEDS ORDERED: LIDOCAINE 1% 300 MG/30 ML SDV ONE (13:12)
[2017-07-21] MEDS ORDERED: VERAPAMIL 5 MG/2 ML VIAL ONE (13:12)
[2017-07-21] MEDS ORDERED: MIDAZOLAM 2 MG/2 ML VIAL ONE (13:12)
[2017-07-21] MEDS ORDERED: fentaNYL 100 MCG/2 ML INJ ONE (13:12)
[2017-07-21] MEDS ORDERED: IOPAMIDOL (ISOVUE-370) 150 ML BTL IV ONE (13:13)
[2017-07-21] MEDS ORDERED: HEPARIN 10,000 UNIT/10 ML MDV (1,000 UNIT/ML) ONE (13:13)
--- NOTE | 2017-07-21 14:27 | PDDXCAT ---
Diagnostic Cath Note - . Date: 07/21/17 Consulting Networking Engineer: Manjit Indication: other (unstable angina with resting CP with SVT and moderate abnormal MPI) - Procedure Access: right wrist Procedure: left heart catheterization, coronary angiography, left ventriculogram - Materials Left Heart Cath size: 5F Left Heart Cath materials: pigtail, other ([place] 4) - Findings-Left Heart Catheterization LM: Normal LAD: Normal LCX: Dominant: Normal RCA: Non dominant: Normal EDP: 11 mm of mercury LVEF: 65 Wall motion: Normal Complications: None Estimated blood loss: <50ml Closure method: TR Band Assessment: 1. Supraventricular tachycardia. 2. Angiographically normal coronary arteries. 3. Normal LV systolic function Plan: Primary prevention. Follow-up for SVT. Consideration for ablation for recurrence. Patient Problems: Problems Problem Status Onset Supraventricular tachycardia Acute Hyperkalemia Acute
--- NOTE | 2017-07-21 17:08 | ASDISCHSUM ---
Discharge Information Plan Status:Home with No Needs Medically Cleared to Leave: Discharge Date: CM D/C Disposition:Home, Routine, Self-Care ADT D/C Disposition:Home, Routine, Self-Care Projected Discharge Date: Transportation at D/C:Family Discharge Delay Reason: Follow-Up Date: Discharge Slot: Final Diagnosis: Placement Information Patient Contact Information Contact Name:MICHELA Relationship:Friend Address: Work Phone: City: [facility] Phone: State/Zip Code: Email: Financial Information Financial Class:HMO and PPO Plans Primary Plan Desc:[employer] PL[employer] Primary Plan Number:[id number] Secondary Plan Desc: Secondary Plan Number: Assessment Information [facility] Initial CM Assessment Living Arrangements What is your living Answers: With Spouse arrangement? Who do you live with? Type Of Residence What kind of residence do Answers: House you live in? Discharge Plan Comments Coordination Status Comments Notes: Pt is a 47 y/o man admitted for shortness of breath. Pt will most likely d/c independent when medically stable. No therapies ordered at this time. CM available for changes. Plan: Independent Date Signed: 07/18/2017 02:54 PM Electronically Signed By:SISSY iPerre LACE LACE Length of stay for Answers: 4-6 days current admission Acuity / Level of Answers: Yes Care: Did the patient have an inpatient admission? Comorbidities - select Answers: Diabetes (uncontrolled or all that apply controlled) Other Notes: dyslipidemia, retinopat hy, HTN # of Emergency department Answers: 0 visits in the last 6 months Score: 9 Date Signed: 07/21/2017 05:06 PM Electronically Signed By:Imani Nielsen RN [facility] CM Progress Note CM Note CM Note Notes: Chart reviewed. Questioning infarted area on his stress test. Plan for cath this pm with Dr. Brown. Needs to be determined. CM to follow. Plan: likely home Independently with family. Date Signed: 07/20/2017 02:42 PM Electronically Signed By:Cecilia Bauer RN [facility] CM Progress Note CM Note CM Note Notes: Dc order received Pt discharging home independently. CM available if needs/changes Date Signed: 07/21/2017 05:07 PM Electronically Signed By:Imani Nielsen RN Intervention Information
--- NOTE | 2017-07-21 18:04 | GDS ---
[f rep st] DISCHARGE SUMMARY DISCHARGE DIAGNOSES: Include: 1. Chest pain. 2. Supraventricular tachycardia. 3. Acute kidney injury. 4. Hyperkalemia. 5. Uncontrolled diabetes. 6. Hypertension. HISTORY OF PRESENT ILLNESS: This is a 47-year-old male with known diabetes, who presents with compla ints of chest pain. CONSULTATIVE SERVICES: Cardiology. PROCEDURES: On 07/21/2017, patient underwent cardiac catheterization that showed nonobstructive nick nary disease. On 07/19/2017, patient underwent nuclear perfusion scanning that showed areas of infarct and lencho-inf arct ischemia. HOSPITAL COURSE BY ISSUE: 1. Chest pain. Patient was ruled out, taken for stress testing. Treadmill section of his stress te sting was abnormal. He was taken for nuclear imaging which was also abnormal. Ultimately taken for catheterization which showed nonobstructive coronary disease. He will be continued on appropriate tr eatment with aspirin, statin, NED inhibitor, and follow in the outpatient setting with Cardiology. 2. SVT. Patient presented in SVT, did convert to sinus the evening of his presentation. Patient wi ll follow in the outpatient setting with the canal driver. He remained in sinus after convers ion from his initial hospital stay. Heart rates are well controlled in the 50s to 60s. 3. Acute kidney injury presumed secondary to hypovolemia. Patient received fluid resuscitation, had normalization of his renal function. 4. Hyperkalemia. This also resolved with fluid resuscitation. 5. Diabetes. Patient is continued on his home dosing of diabetic medications. Hemoglobin A1c is no t optimally controlled. We will leave additional titration of his medications to his outpatient prov iders. MEDICATIONS AT THE TIME OF DISPOSITION: Please reference the med rec printed on 07/21/2017. PENDING STUDIES: At the time of this dictation are none. APPOINTMENTS: 1. Include with [facility] for followup of his admission SVT. 2. With his outpatient provider for ongoing management of his diabetes and medical comorbidities. I spent greater than 30 minutes in the planning and coordination of this discharge. /[id number]/MODL
[2017-07-21 18:59] VITALS: BP 128/81
--- NOTE | 2017-07-23 11:58 | CPEKG ---
Heart Rate: 94 RR Interval: 638 P-R Interval: 144 QRSD Interval: 72 QT Interval: 344 QTC Interval: 431 P Concord: 56 QRS [place]: 83 T Wave Concord: 31 EKG Severity - NORMAL ECG - EKG Impression: SINUS RHYTHM Electronically Signed By: Corona Wynn 23-Jul-2017 15:58:31
== END 2017-07-21 19:24 | disposition home or self-care (01) | DRG 287 ==
LOC: OBSVTOIN 11:50 → F2W 13:45
PROVIDERS: ADMIT Internal Medicine; ATTEND Hospitalist
PROC: B2151ZZ Fluoroscopy of Left Heart using Low Osmolar Contrast (ICD-10-PCS; principal; 2017-07-21)
PROC: B2111ZZ Fluoroscopy of Multiple Coronary Arteries using Low Osmolar Contrast (ICD-10-PCS; principal; 2017-07-21)
PROC: 4A023N7 Measurement of Cardiac Sampling and Pressure, Left Heart, Percutaneous Approach (ICD-10-PCS; principal; 2017-07-21)
DX: R07.9 Chest pain, unspecified (principal); I47.1 Supraventricular tachycardia; N17.9 Acute kidney failure, unspecified; E87.5 Hyperkalemia; R94.39 Abnormal result of other cardiovascular function study; E86.1 Hypovolemia; E11.65 Type 2 diabetes mellitus with hyperglycemia; I10 Essential (primary) hypertension; E78.5 Hyperlipidemia, unspecified; I51.7 Cardiomegaly; E11.319 Type 2 diabetes mellitus with unspecified diabetic retinopathy without macular edema; Z79.4 Long term (current) use of insulin; Z87.442 Personal history of urinary calculi; Z79.82 Long term (current) use of aspirin
CPT/HCPCS: 82947-QW; 96374; A9500; C1769; G0378; J0610; J1644; J1650; J1815; J2250; J2785; J3010; Q9967